=== PATIENT | male | born 1965 | race Caucasian/White ===

== ENCOUNTER 2021-07-22 07:40 | Outpatient (CLI) | payer OTHER | END 2021-07-22 07:41 | disposition home or self-care (01) | LOC: TBSIIMAG 07:40 | PROVIDERS: ATTEND Neurological Surgery | DX: M51.16 Intervertebral disc disorders with radiculopathy, lumbar region (principal); M54.5 Low back pain; M48.061 Spinal stenosis, lumbar region without neurogenic claudication | CPT/HCPCS: 72148 ==

== ENCOUNTER 2021-08-16 09:26 | Outpatient (CLI) | payer OTHER ==
[2021-08-16 18:10] LABS: SARS-CoV-2 PCR by NAA Not Detected (NotDetected)
== END 2021-08-16 09:27 | disposition home or self-care (01) ==
LOC: LABBT 09:26
PROVIDERS: ATTEND Neurological Surgery
DX: Z01.818 Encounter for other preprocedural examination (principal); M51.16 Intervertebral disc disorders with radiculopathy, lumbar region; Z20.822 Contact with and (suspected) exposure to COVID-19
CPT/HCPCS: 93005; 93010; U0003; U0005

== ENCOUNTER 2021-08-19 06:35 | Day surgery (SDC) | payer OTHER ==
[2021-08-18 10:51] VITALS: BMI 33.3
[2021-08-19] MEDS ORDERED: Thrombin 5000 UNITS/5 ML VIAL ONE (06:56)
[2021-08-19] MEDS ORDERED: EPINEPHrine 1 MG/ML AMP ONE (06:56)
[2021-08-19] MEDS ORDERED: Bupivacaine PF 0.5% 30 ML VIAL ONE (06:56)
[2021-08-19] MEDS ORDERED: ceFAZolin 2 GM/DEX 5% 100 ML BAG ONE ×2 (07:10→12:35)
[2021-08-19] MEDS ORDERED: Midazolam HCl 2 mg/2 ml Vial ONE (07:24)
[2021-08-19] MEDS ORDERED: Fentanyl 100 MCG/2 ML VIAL ONE ×5 (07:29→11:45)
[2021-08-19] MEDS ORDERED: Ondansetron PF 4 MG/2 ML Vial ONE (08:31)
[2021-08-19] MEDS ORDERED: Glycopyrrolate 0.2 MG/ML 5 ML SYRINGE ONE (08:31)
[2021-08-19] MEDS ORDERED: Lidocaine 1% PF 5 ML VIAL ONE (08:31)
[2021-08-19] MEDS ORDERED: Dexamethasone 20 MG/5 ML VIAL ONE (08:31)
[2021-08-19] MEDS ORDERED: Rocuronium Bromide 10 MG/ML (10ML VIAL) ONE (08:31)
[2021-08-19] MEDS ORDERED: PROPOFOL 200 MG/20 ML VIAL ONE (08:31)
[2021-08-19] MEDS ORDERED: Promethazine HCl 25 MG/ML VIAL ONE (10:40)
[2021-08-19] MEDS ORDERED: HYDROmorphone 2 MG/ML VIAL ONE (10:44)
[2021-08-19] MEDS ORDERED: Tamsulosin HCl 0.4 MG CAP ONE (11:02)
[2021-08-19] MEDS ORDERED: Cyclobenzaprine 10 MG TAB ONE (11:13)
[2021-08-19] MEDS ORDERED: HYDROcodone/Acetaminophen 5/325 mg Tablet ONE (12:36)
== END 2021-08-19 14:30 | disposition home or self-care (01) ==
LOC: SDC 06:35
PROVIDERS: ATTEND Neurological Surgery
PROC: 00NY0ZZ Release Lumbar Spinal Cord, Open Approach (ICD-10-PCS; principal; 2021-08-19)
DX: M51.16 Intervertebral disc disorders with radiculopathy, lumbar region (principal); E11.9 Type 2 diabetes mellitus without complications; E78.5 Hyperlipidemia, unspecified; I10 Essential (primary) hypertension; K50.90 Crohn's disease, unspecified, without complications; D64.9 Anemia, unspecified; J45.909 Unspecified asthma, uncomplicated; Z79.82 Long term (current) use of aspirin; Z79.84 Long term (current) use of oral hypoglycemic drugs; Z79.899 Other long term (current) drug therapy
CPT/HCPCS: 76000; J0171; J1100; J1170; J2250; J2405; J2550; J2704; J3010; S0020

== ENCOUNTER 2023-10-01 09:12 | Outpatient (CLI) | payer BC | END 2023-10-01 09:13 | disposition home or self-care (01) | LOC: SCSMRI 09:12 | PROVIDERS: ATTEND Internal Medicine | DX: M25.511 Pain in right shoulder (principal); M75.111 Incomplete rotator cuff tear or rupture of right shoulder, not specified as traumatic; S43.431A Superior glenoid labrum lesion of right shoulder, initial encounter; M75.81 Other shoulder lesions, right shoulder ==